=== PATIENT | male | born 1990 | race Caucasian/White ===

== ENCOUNTER 2016-07-17 23:23 | Inpatient (IN) | payer OTHER ==
[~2016-07-17] VITALS: Ht 188 cm; Wt 94.3 kg
[~2016-07-17 23:23] MED LIST: REME45TA PO
--- NOTE | 2016-07-17 23:42 | PD ---
HPI Chief Complaint: BA Time Seen by Provider: 23:35 Travel History International Travel<30 days: No Contact w/Intl Traveler<30days: No Traveled to known affect area: No History of Present Illness HPI 25-year-old male presents under Dennis act initiated by [employer] [employer]. According to his paperwork, "Vincent stated that he wanted to cause harm to himself, by using a knife. Vincent stated he had thoughts of killing himself. Vincent was in possession of a knife upon my arrival. Vincent also contacted a suicide hotline prior to my arrival." The patient reports that his mother called the suicide hotline because he asked her to. He refuses to speak anymore and the issue and would prefer to speak to the psychiatrist about it. He denies any medical problems at this time. He denies any suicide attempts. He denies any pain. He admits to drinking some alcoholic a not tonight. Denies any drug use. He has no other complaints. PFSH Past Medical History Asthma: No Anxiety: Yes Depression: Yes Cancer: No Cardiovascular Problems: No COPD: No Cerebrovascular Accident: No Diabetes: No Diminished Hearing: No Endocrine: No Genitourinary: Yes Headaches: Yes Hypertension: Yes (R/T NEPHROLOGY ISSUE OF KINKED VESSLE NOW RESOLVED AGE 10) Immune Disorder: No Kidney Stones: Yes (YEARS AGO) Musculoskeletal: No Neurologic: Yes Psychiatric: Yes Reproductive: No Respiratory: No Immunizations Current: Yes Migraines: No Renal Failure: No Seizures: No Sleep Apnea: No Past Surgical History Abdominal Surgery: Yes (APPENDECTOMY) Appendectomy: Yes Cardiac Surgery: No Ear Surgery: Yes (TYMPANOSTOMY TUBE) Endocrine Surgery: No Eye Surgery: No Genitourinary Surgery: No Gynecologic Surgery: No Oral Surgery: No Thoracic Surgery: No Tympanostomy Tube: Yes Other Surgery: Yes Social History Alcohol Use: Yes (WEEKLY, 12 DRINKS) Tobacco Use: Yes (CIGARETTES, 1 PPD) Substance Use: Yes Allergies-Medications (Allergen,Severity, Reaction): Coded Allergies: No Known Allergies (Verified , 07/17/16) Reported Meds & Prescriptions Reported Meds & Active Scripts Active No Active Prescriptions or Reported Medications Review of Systems Except as stated in HPI: all other systems reviewed are Neg Physical Exam Narrative GENERAL: Well-developed well-nourished male in no acute distress SKIN: Warm and dry. HEAD: Atraumatic. Normocephalic. EYES: Pupils equal and round. No scleral icterus. No injection or drainage. ENT: No nasal bleeding or discharge. Mucous membranes pink and moist. NECK: Trachea midline. No JVD. CARDIOVASCULAR: Regular rate and rhythm. No murmur appreciated. RESPIRATORY: No accessory muscle use. Clear to auscultation. Breath sounds equal bilaterally. GASTROINTESTINAL: Abdomen soft, non-tender, nondistended. Hepatic and splenic margins not palpable. MUSCULOSKELETAL: No obvious deformities. NEUROLOGICAL: Awake and alert. No obvious cranial nerve deficits. Motor grossly within normal limits. Normal speech. PSYCHIATRIC: Appropriate mood and affect; insight and judgment normal. Data Data Last Documented VS Vital Signs Date Time Temp Pulse Resp B/P Pulse Ox O2 Delivery O2 Flow Rate FiO2 07/17/16 23:53 14 07/17/16 23:50 98.9 110 130/77 96 Orders Complete Blood Count With Diff (07/17/16 23:32) Comprehensive Metabolic Panel (07/17/16 23:32) Drug Screen, Random Urine (07/17/16 23:32) Alcohol (Ethanol) (07/17/16 23:32) Salicylates (Aspirin) (07/17/16 23:32) Tylenol (Acetaminophen) (07/17/16 23:32) Psych Screen (07/17/16 23:32) Nicotine 14 Mg Patch.24 Hr (Habitrol 14 (07/18/16 00:00) Labs Laboratory Tests Test 07/17/16 23:55 White Blood Count 12.7 TH/MM3 Red Blood Count 4.84 MIL/MM3 Hemoglobin 14.1 GM/DL Hematocrit 41.5 % Mean Corpuscular Volume 85.6 FL Mean Corpuscular Hemoglobin 29.1 PG Mean Corpuscular Hemoglobin 34.0 % Concent Red Cell Distribution Width 13.4 % Platelet Count 222 TH/MM3 Mean Platelet Volume 9.3 FL Neutrophils (%) (Auto) 62.9 % Lymphocytes (%) (Auto) 27.6 % Monocytes (%) (Auto) 7.7 % Eosinophils (%) (Auto) 0.9 % Basophils (%) (Auto) 0.9 % Neutrophils # (Auto) 8.0 TH/MM3 Lymphocytes # (Auto) 3.5 TH/MM3 Monocytes # (Auto) 1.0 TH/MM3 Eosinophils # (Auto) 0.1 TH/MM3 Basophils # (Auto) 0.1 TH/MM3 CBC Comment DIFF FINAL Differential Comment Sodium Level 143 MEQ/L Potassium Level 3.7 MEQ/L Chloride Level 107 MEQ/L Carbon Dioxide Level 25.0 MEQ/L Anion Gap 11 MEQ/L Blood Urea Nitrogen 10 MG/DL Creatinine 1.05 MG/DL Estimat Glomerular Filtration 86 ML/MIN Rate Random Glucose 108 MG/DL Calcium Level 9.4 MG/DL Total Bilirubin 0.2 MG/DL Aspartate Amino Transf 24 U/L (AST/SGOT) Alanine Aminotransferase 42 U/L (ALT/SGPT) Alkaline Phosphatase 71 U/L Total Protein 8.2 GM/DL Albumin 4.2 GM/DL Salicylates Level 2.5 MG/DL Acetaminophen Level LESS THAN 2.0 MCG/ML Ethyl Alcohol Level 139 MG/DL [facility] Medical Decision Making Medical Screen Exam Complete: Yes Emergency Medical Condition: Yes Medical Record Reviewed: Yes Interpretation(s) CBC WBC 12.7 CMP glucose 108 Alcohol level 139 Differential Diagnosis Adjustment reaction, major depressive disorder, acute psychosis, substance induced mood disorder, depressive disorder not otherwise specified Narrative Course 25-year-old male who presents under Dennis act for suicidal ideation. Once again he declines speaking about anything psychiatric issues until he speaks to the psychiatrist. He denies any medical complaints at this time. Admits to drinking alcohol tonight. Denies any suicide attempts. Mental health screening discussed with the patient. Psychiatric screen ordered. The patient is medically cleared for psychiatric disposition. Scripts No Active Prescriptions or Reported Meds Yash Barclay Jul 17, 2016 23:42
[2016-07-17 23:50] VITALS: BP 130/77; PULSE 110; RESP 14; TEMP 98.9; O2SAT 96
[2016-07-18] MEDS ORDERED: NICOTINE 14 MG/24 HR PATCH TD ONE
[2016-07-18 00:17] LABS: BASOPHIL # 0.1 TH/MM3 (0-0.2); BASOPHIL % 0.9 % (0.0-2.0); EOSINOPHIL # 0.1 TH/MM3 (0-0.4); EOSINOPHIL % 0.9 % (0.0-4.0); HEMATOCRIT 41.5 % (39.0-51.0); HEMO FLAGS DIFF FINAL; LYMPH % 27.6 % (9.0-44.0); LYMPHOCYTE # 3.5 TH/MM3 (1.0-4.8); MEAN CELL VOLUME 85.6 FL (80.0-100.0); MEAN CORPUSCULAR HEMOGLOBIN 29.1 PG (27.0-34.0); MONO % 7.7 % (0.0-8.0); NEUT % 62.9 % (16.0-70.0); PLATELET COUNT 222 TH/MM3 (150-450); RED BLOOD COUNT 4.84 MIL/MM3 (4.50-5.90); RED CELL DISTRIBUTION WIDTH 13.4 % (11.6-17.2); WHITE BLOOD COUNT 12.7 TH/MM3 (4.0-11.0)
[2016-07-18 00:39] LABS: ALKALINE PHOSPHATASE 71 U/L (45-117); TOTAL BILIRUBIN ADULT 0.2 MG/DL (0.2-1.0)
[2016-07-18 00:46] LABS: ALT (GPT) 42 U/L (12-78); ANION GAP 11 MEQ/L (5-15); AST (GOT) 24 U/L (15-37); BLOOD UREA NITROGEN 10 MG/DL (7-18); CHLORIDE 107 MEQ/L (98-107); GLOMERULAR FILTRATION RATE 86 ML/MIN (>89); POTASSIUM 3.7 MEQ/L (3.5-5.1); SODIUM (NA) 143 MEQ/L (136-145)
[2016-07-18 00:47] LABS: ACETAMINOPHEN LESS THAN 2.0 MCG/ML (10.0-30.0)
[2016-07-18 01:05] VITALS: BP 135/83; PULSE 104; RESP 22; TEMP 97.9; O2SAT 99
[2016-07-18 05:37] VITALS: BP 140/75; PULSE 89; RESP 18; TEMP 97.5; O2SAT 98
[2016-07-18 08:13] VITALS: BP 140/75; PULSE 89; RESP 18; O2SAT 98
[2016-07-18 09:35] LABS: AMPHETAMINE, URINE NEG (NEG); BARBITURATES, URINE NEG (NEG); COCAINE, URINE NEG (NEG)
[2016-07-18 10:12] VITALS: BP 138/73; PULSE 56; RESP 18
--- NOTE | 2016-07-18 10:16 | PD ---
History of Present Illness Chief Complaint: Psychiatric Symptoms Time Seen by Provider: 09:15 Travel History International Travel<30 Days: No Contact w/Intl Traveler<30days: No Known affected area: No Legal Status Legal Status: Dennis Act Dennis Act Signed By: Mariano Alejo History of Present Illness: History of Present Illness 25-year-old male with history of adjustment disorder , substance induced mood disorder who presents under Dennis act initiated by [employer]. According to his paperwork, "Vincent stated that he wanted to cause harm to himself, by using a knife. Vincent stated he had thoughts of killing himself. Vincent was in possession of a knife upon my arrival. Vincent also contacted a suicide hotline prior to my arrival." Patient refused to answer any questions in ED and has been less than cooperative with screening process. Patient was monitored in J pod. He did not present any behavioral concerns or any suicidality. This morning he is awake, alert and oriented. Dressed in hospital attire. His hygiene is very poor and he is very disheveled. Speech is of low tone. He is only minimally cooperative with current evaluation. He is contemptuous , irritable. States " What do you want to know. I have talked to about 7 people". He begrudgingly answered some questions. States " I'm not right" . I haven't left my house for the past 4 weeks, I have not bathed in several weeks, sleeping is variable and inconsistent, low energy. He denies any hallucinatory process. In terms of suicidal ideation he does not answer either way. he admits to use of Morphine and Xanax " to self medicate" and states last used " about a few weeks ago". His BAL was 139 on admission and pending toxicology report. I have attempted to obtain collateral information from his mother but she has not returned my telephone call. As per records hew as last hosp at [facility] in 2012 under the care of Dr. Zarate. He has one previous suicide attempt by overdose of Tylenol in 2012. [facility] Past Medical History Asthma: No Anxiety: Yes Depression: Yes Cancer: No Cardiovascular Problems: No COPD: No Cerebrovascular Accident: No Diabetes: No Diminished Hearing: No Endocrine: No Genitourinary: Yes Headaches: Yes Hypertension: Yes (R/T NEPHROLOGY ISSUE OF KINKED VESSLE NOW RESOLVED AGE 10) Immune Disorder: No Kidney Stones: Yes (YEARS AGO) Musculoskeletal: No Neurologic: Yes Psychiatric: Yes Reproductive: No Respiratory: No Immunizations Current: Yes Migraines: No Renal Failure: No Seizures: No Sleep Apnea: No Past Surgical History Abdominal Surgery: Yes (APPENDECTOMY) Appendectomy: Yes Cardiac Surgery: No Ear Surgery: Yes (TYMPANOSTOMY TUBE) Endocrine Surgery: No Eye Surgery: No Genitourinary Surgery: No Gynecologic Surgery: No Oral Surgery: No Thoracic Surgery: No Tympanostomy Tube: Yes Other Surgery: Yes Psychiatric History Psychiatric History Hx Psychiatric Treatment: HX ANXIETY, DEPRESSION, SUICIDAL IDEATIONS, ADJUSTMENT REACTION D/O Deneis current psychiatric treatment History of Inpatient Treatment: Yes (2012 under the care of Dr. Zarate) Guns or firearms in home: No Social History Limited due to his lack of cooperation. Lives with his parents. Hx Alcohol Use: Yes (WEEKLY, 12 DRINKS) Hx Tobacco Use: Yes (CIGARETTES, 1 PPD) Hx Substance Use: Yes Substance Use Type: Alcohol, Marijuana, Nicotine/Cigarettes, Benzos (Valium, Xanax), Synth Opiates-Pain Pills Hx of Substance Use Treatment: Yes Family Psychiatric History Unknown Allergies-Medications (Allergen,Severity, Reaction): Coded Allergies: No Known Allergies (Verified , 07/17/16) Reported Meds & Prescriptions Reported Meds & Active Scripts Active No Active Prescriptions or Reported Medications Review of Systems ROS Limitations: Uncooperative Exam Alert: Yes [place]: Person (ox4) Mood: Angry, Depressed, Oppositional Affect: Other (angry) Eye Contact: Indirect Memory Intact: Comment (not tested) Hallucinations: Other (deneis) Delusions: No Suicidal: Ideation (Non commital ) Homicidal: Ideation (Answers " doesn't everybody feel like hurting someone") Insight/Judgement Poor. Poor MDM Medical Decision Making Medical Record Reviewed: Yes Assessment/Plan 25 year old male under a BA for suicidal ideation . Patient reports he has been using Morphine and Xanax in order to " self medicate". Repost depression as well. He is not cooperative with admission and is irritable with staff. Strong [place] 2 traits evident at this time mostly cluster B. At this time admission is recommended to further evaluate, maintain safety, stabilize mood and initiate treatment. as he presents as a risk to self. Orders Complete Blood Count With Diff (07/17/16 23:32) Comprehensive Metabolic Panel (07/17/16 23:32) Drug Screen, Random Urine (07/17/16 23:32) Alcohol (Ethanol) (07/17/16 23:32) Salicylates (Aspirin) (07/17/16 23:32) Tylenol (Acetaminophen) (07/17/16 23:32) Psych Screen (07/17/16 23:32) Nicotine 14 Mg Patch.24 Hr (Habitrol 14 (07/18/16 00:00) Diet Regular Basic (07/18/16 Breakfast) Results Vital Signs Date Time Temp Pulse Resp B/P Pulse Ox O2 Delivery O2 Flow Rate FiO2 07/18/16 08:13 89 18 140/75 98 Room Air 07/18/16 05:37 97.5 89 18 140/75 98 Room Air 07/18/16 01:05 97.9 104 22 135/83 99 Room Air 07/17/16 23:53 14 07/17/16 23:50 98.9 110 14 130/77 96 Laboratory Tests Test 07/17/16 07/18/16 23:55 08:15 White Blood Count 12.7 Red Blood Count 4.84 Hemoglobin 14.1 Hematocrit 41.5 Mean Corpuscular Volume 85.6 Mean Corpuscular Hemoglobin 29.1 Mean Corpuscular Hemoglobin 34.0 Concent Red Cell Distribution Width 13.4 Platelet Count 222 Mean Platelet Volume 9.3 Neutrophils (%) (Auto) 62.9 Lymphocytes (%) (Auto) 27.6 Monocytes (%) (Auto) 7.7 Eosinophils (%) (Auto) 0.9 Basophils (%) (Auto) 0.9 Neutrophils # (Auto) 8.0 Lymphocytes # (Auto) 3.5 Monocytes # (Auto) 1.0 Eosinophils # (Auto) 0.1 Basophils # (Auto) 0.1 CBC Comment DIFF FINAL Differential Comment Sodium Level 143 Potassium Level 3.7 Chloride Level 107 Carbon Dioxide Level 25.0 Anion Gap 11 Blood Urea Nitrogen 10 Creatinine 1.05 Estimat Glomerular Filtration 86 Rate Random Glucose 108 Calcium Level 9.4 Total Bilirubin 0.2 Aspartate Amino Transf 24 (AST/SGOT) Alanine Aminotransferase 42 (ALT/SGPT) Alkaline Phosphatase 71 Total Protein 8.2 Albumin 4.2 Salicylates Level 2.5 Acetaminophen Level LESS THAN 2.0 Ethyl Alcohol Level 139 Urine Opiates Screen NEG Urine Barbiturates Screen NEG Urine Amphetamines Screen NEG Urine Benzodiazepines Screen NEG Urine Cocaine Screen NEG Urine Cannabinoids Screen NEG Diagnosis Primary Impression: Substance induced mood disorder Admitting Information Admitting Physician Requests: Admit (Dr. Toscano) Prescriptions No Active Prescriptions or Reported Meds Alta Keller Jul 18, 2016 10:16
[2016-07-18] MEDS ORDERED: MAGNESIUM HYDROXIDE SUSP 30 ML CUP PO PRN (10:30)
[2016-07-18] MEDS ORDERED: ALUMINUM/MAGNESIUM/SIMETH 30 ML CUP PO PRN (10:30)
[2016-07-18 12:31] VITALS: BP 157/103; PULSE 58; O2SAT 97
[2016-07-18 21:23] VITALS: BP 115/62; PULSE 53; RESP 17; TEMP 98
[2016-07-19 05:52] VITALS: BP 131/67; PULSE 56; RESP 16; TEMP 98.2; O2SAT 98
[2016-07-19 08:41] LABS: ANION GAP 8 MEQ/L (5-15); BICARBONATE 25.4 MEQ/L (21.0-32.0); BLOOD UREA NITROGEN 9 MG/DL (7-18); CHLORIDE 106 MEQ/L (98-107); GLOMERULAR FILTRATION RATE 108 ML/MIN (>89); HDL CHOLESTEROL 39.5 MG/DL (40.0-60.0); LDL CHOLESTEROL 87 MG/DL (0-99); POTASSIUM 3.9 MEQ/L (3.5-5.1); SODIUM (NA) 139 MEQ/L (136-145)
[2016-07-19 12:24] LABS: HEMOGLOBIN A1b 0.8 %; HEMOGLOBIN Ao 86.6 %; HEMOGLOBIN F 0.9 %; HEMOGLOBIN LA1C 1.8 %; HEMOGLOBIN P3 3.3 %
[2016-07-19] MEDS: NICOTINE 21 MG/24 HR PATCH T-DERMAL SCH (13:00)
[2016-07-19] MEDS ORDERED: ACETAMINOPHEN 325 MG TAB PO PRN (13:00)
[2016-07-19] MEDS ORDERED: ALUMINUM/MAGNESIUM/SIMETH 30 ML CUP PO PRN (13:00)
[2016-07-19] MEDS ORDERED: MAGNESIUM HYDROXIDE SUSP 30 ML CUP PO PRN (13:00)
[2016-07-19] MEDS: REMOVE OLD NICODERM (NICOTINE) PATCH TD SCH (13:00)
--- NOTE | 2016-07-19 13:24 | HHI.HP ---
Provisional Diagnosis Admission Date Jul 18, 2016 at 10:20 [place] I. Major depressive disorder recurrent moderate f 33.1, EtOH intoxication, history of multiple drug abuse Certification of Person's Competence To Provide Express and Informed Consent I have personally examined Vincent Cardoso , a person being served at [facility] on, Jul 19, 2016 13:03. Express and informed consent means consent voluntarily given in writing, by a competent person, after sufficient explanation and disclosure of the subject matter involved to enable the person to make a knowing and willful decision without any element of force, fraud, deceit, duress, or other form of constraint or coercion. This person is 18 years of age or older, is not now known to be incompetent to consent to treatment with a guardian advocate, and does not have a health care surrogate or proxy currently making medical treatment decisions. I have found this person to be one of the following: [] Competent to provide express and informed consent, as defined above, for voluntary admission to this facility and is competent to provide express and informed consent for treatment. He/she has the consistent capacity to make well reasoned, willful, and knowing decisions concerning his or her medical or mental health treatment. The person fully and consistently understands the purpose of the admission for examination/placement and is fully capable of personally exercising all rights assured [place] [] Incompetent to provide express and informed consent to voluntary admission, and this is incompetent to provide express and informed consent to treatment. The person must be transferred to involuntary status and a petition for a guardian advocate filed with the Circuit Court. [x] Refusing to provide express and informed consent to voluntary admission but is competent to provide express and informed consent for treatment. The person must be discharged or transferred to involuntary status. Form shall be completed within 24 hours of a person's arrival at the receiving facility and filed in the clinical record of each person: 1. Admitted on a voluntary basis 2. Permitted to provide express and informed consent to his/her own treatment 3. Allowed to transfer from involuntary to voluntary status 4. Prior to permitting a person to consent to his or her own treatment after having been previously found incompetent to consent to treatment. History of Present Illness Capacity: Has Capacity HPI Patient is a 25-year-old white male comes here under Dennis act by the [place] [employer] dated 07/17/16 at 2255 hrs. stating Jaxon stated that he wanted to cause harm to himself by using a knife. Jaxon stated he had thoughts of killing himself. Jaxon was in possession of a knife upon my arrival. Jaxon also contacted the suicide hotline prior to my arrival. Patient seen screened in the ED blood alcohol level of 139 urine toxicology negative. Upon review of EMR patient has had 3 visits for mental health issues in 2013 there been various urine toxicology is drawn showing elevated blood alcohol levels and also other substances including marijuana, opiates, and benzodiazepines. At the present time patient sitting quietly in his room on 2600 nurse Tyson present throughout session. Patient initially attempted to control the meeting by demanding he speak with me alone, I informed him that this was a team approach and that the nurses remain present to witness and he were of his statements. Patient showed some marked manipulation irritability narcissistic traits during the session he states that he drinks to treat his depression stated that he had been depressed for many years. He lives at home with his mother father and 14-year-old sister, states he gets along with his mother, does not get along with his father or sister. He is vague somewhat grandiose statements about a multiple year history of multiple drug abuse including K2 mushrooms and hallucinogenic's. Though he denies intravenous drug abuse. He states he has both initial and mid insomnia with a.m. anergy, there is decreased energy, though he denies any crying episodes, he states appetite is up and down, though his anhedonic stating he has no sex drive (he states his sexual preferences female), he finds his attention and concentration is markedly variable, the fundus self isolating night going into any crowded all mall like environment, he does acknowledge self -medicating with alcohol and drugs, he denies any voices or visions with this, he does acknowledge suicidal ideation though he states he would not kill himself causing what he would do to his mother and sister. He denies any physical or sexual abuse. Voices he has at times had a pressure show with his father. He states he has been arrested in the past for aggressive behavior. He does deny any significant mood swings though there to he is somewhat tangential minimizing and confusing with his statements about manic episodes He states he has some college courses and psychology. 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 We did discuss medications. He states he has been on medications in the past this hospitalizations in 2013 being was never compliant with medications and any type of long-term. We will start the patient on Remeron 15 mg at bedtime and Abilify 10 mg in the morning.. At this time patient does meet criteria for acute involuntary psychiatric hospitalization on the Dennis act I'll do first opinion requests second opinion. I feel he has capacity to assist with us was medications. Hopeless be fairly short stay and we can make recommendations related to substance abuse and mental health issues. Though he did make somewhat confusing story about making an appointment with a family doctor to discuss possible counseling. He does deny any significant medical surgical problems Review of Systems Constitutional: DENIES: Diaphoretic episodes, Fatigue, Fever, Weight gain, Weight loss, Chills, Dizziness, Change in appetite, Night Sweats Endocrine: DENIES: Heat/cold intolerance, Polydipsia, Polyuria, Polyphagia Eyes: DENIES: Blurred vision, Diplopia, Eye inflammation, Eye pain, Vision loss , Photosensitivity, Double Vision Ears, nose, mouth, throat: DENIES: Tinnitus, Hearing loss, Vertigo, Nasal discharge, Oral lesions, Throat pain, Hoarseness, Ear Pain, Running Nose, Epistaxis, Sinus Pain, Toothache, Odynophagia Respiratory: DENIES: Apneas, Cough, Snoring, Wheezing, Hemoptysis, Sputum production, Shortness of breath Cardiovascular: DENIES: Chest pain, Palpitations, Syncope, Dyspnea on Exertion , PND, Lower Extremity Edema, Orthopnea, Claudication Gastrointestinal: DENIES: Abdominal pain, Black stools, Bloody stools, Constipation, Diarrhea, Nausea, Vomiting, Difficulty Swallowing, Anorexia Genitourinary: DENIES: Sexual dysfunction, Urinary frequency, Urinary incontinence, Urgency, Hematuria, Dysuria, Nocturia, Penile Discharge, Testicular Pain, Testicular Swelling Musculoskeletal: DENIES: Joint pain, Muscle aches, Stiffness, Joint Swelling, Back pain, Neck pain Integumentary: DENIES: Abnormal pigmentation, Nail changes, Pruritus, Rash Hematologic/lymphatic: DENIES: Bruising, Lymphadenopathy Immunologic/allergic: DENIES: Eczema, Urticaria Neurologic: DENIES: Abnormal gait, Headache, Localized weakness, Paresthesias, Seizures, Speech Problems, Tremor, Poor Balance Psychiatric: COMPLAINS OF: Depression, Suicidal Ideation Past Psych History Psychological trauma history Patient denies physical or sexual abuse, acknowledges a long history of multiple drug abuse, has been hospitalized [place] [address] [place] Violence risk - others (6 mos) Patient states he has pressure showed his father in the past Violence risk - self (6 mos) Patient states vague suicidal ideation but is been recurrent Substance Abuse History Drugs/Alcohol past 12 months Patient active drinking Past Family Social History Coded Allergies: No Known Allergies (Verified , 07/17/16) Past Medical History Patient denies any significant medical issues No Active Prescriptions or Reported Meds Current Medications Medications (Trade) Dose Ordered Sig/Molly Route Start Time Stop Time Status Last Admin (Tylenol) 650 mg Q4H PRN PO 07/18/16 10:30 (Milk Of Magnesia Liq) 30 ml DAILY PRN PO 07/18/16 10:30 (Mag-Al Plus Susp Liq) 30 ml Q6H PRN PO 07/18/16 10:30 (Mag-Al Plus Susp Liq) 30 ml Q6H PRN PO 07/19/16 13:00 UNV Family History Patient denies mental illness in the family play states he has a difficult which ship with his father Social History Patient is single no children long history alcohol abuse and past history multiple drug abuse Patient's Strengths (min. 2) Patient verbal albeit quite cynical manipulative and entitled, intelligence and able axis health care Physical Exam Patient seen screened in ED exam reviewed and agreed with vital signs blood pressure 131/67 pulse 56 respirations 16 Vital Signs Vital Signs Date Time Temp Pulse Resp B/P Pulse Ox O2 Delivery O2 Flow Rate FiO2 07/19/16 05:52 98.2 56 16 131/67 98 07/18/16 10:12 Room Air Mental Status Examination Alert oriented white male appears stated age sitting quietly in his room with nurses present as mentioned above. Patient somewhat manipulative entitled narcissistic and his responses some vague grandiosity noted with intense eye contact Appearance Clean the Speech: Unremarkable, Fast, Circumstantial (mildly), Tangential (mildly) Orientation: x3 Memory: Unremarkable Thought Process: Logical, Circumstantial (mildly) Thought Content: Unremarkable Language [place]ian Fund of Knowledge Moderate Hallucination Type: None Attention and Concentration: Other (fair) Suicidal Ideation: Yes (vague ideation) Previous Suicide Attempts: No Homicidal Ideation: No Previous Homicide Attempts: No Insight: Fair Judgement: Poor Affect: Other (decreased range and intensity) Mood: Sad (the times patient showing incongruent affect) Motor Activity: Normal gait Assessment & Plan Problem List: (1) Major depressive disorder, recurrent episode, moderate ICD Code: F33.1 Assessment & Plan Estimated LOS: 7 days at this time patient meets criteria for involuntary psychiatric hospitalization under Dennis act I'll do first opinion requests a second opinion, I feel he has capacity to make decisions considering his medication. We'll start him on Remeron at bedtime and Abilify in the morning Discharge Planning To be determined Request HC Surrog/Guard Advoc?: No Raudel Toscano MD Jul 19, 2016 13:24
[2016-07-19] MEDS: ARIPiprazole 10 MG TAB PO SCH (13:36)
[2016-07-19 18:13] VITALS: BP 131/81; PULSE 76; RESP 18; TEMP 98.7; O2SAT 95
[2016-07-19 21:00] VITALS: BP 131/81; PULSE 76; RESP 18; TEMP 98.7; O2SAT 95
[2016-07-19] MEDS ORDERED: diphenhydrAMINE HCL 50 MG CAP PO PRN (21:00)
[2016-07-19] MEDS: MIRTAZAPINE 15 MG TAB PO SCH (21:15)
[2016-07-19 23:16] VITALS: BP 131/81; PULSE 76; RESP 48; TEMP 98.7; O2SAT 95
[2016-07-20 06:35] VITALS: BP 127/73; PULSE 63; RESP 16; TEMP 97.5; O2SAT 95
[2016-07-20] MEDS: ARIPiprazole 10 MG TAB PO SCH (08:31)
[2016-07-20] MEDS: REMOVE OLD NICODERM (NICOTINE) PATCH TD SCH ×2 (09:00→11:15)
[2016-07-20] MEDS: NICOTINE 21 MG/24 HR PATCH T-DERMAL SCH ×2 (09:00→11:14)
--- NOTE | 2016-07-20 16:21 | HHI.PYPN ---
Subjective Remarks Patient seen, chart reviewed, case discussed with staff Lengthy discussion with patient revealed that he could identify manic episodes, discussion revealed continued suicidality, marked grandiosity, recent lack of sleep, previous weight gain on Seroquel 150 q HS, no previous use of [place], FHx of Bipolar disorder in his mother. (this Hx is highly divergent from that obtained by Dr Toscano at admission, raising questions about its veracity, however I will proceed assuming it is correct anyway) Patient reports he does not like Abilify and wants to stop it Patient is highly irritable and feels people are lying to him and misrepresenting things to him. He is up for meals and meds. Review of Systems Psychiatric: COMPLAINS OF: Anxiety, Mood changes, Depression, Agitation, Suicidal Ideation Other otherwise 10 point ROS is negative Objective Alert: Yes [place]: Person (ox4) Mood: Angry, Depressed, Oppositional Affect: Other (angry) Memory Intact: Comment (not tested) Hallucinations: Other (deneis) Delusions: Yes Delusion Type: Grandiose, Other Suicidal: Ideation (Non commital ) Homicidal: Ideation (Answers " doesn't everybody feel like hurting someone") Insight/Judgement poor Labs Allergies Coded Allergies Type Severity Reaction Last Updated Verified No Known Allergies 07/17/16 Yes Laboratory Tests Test 07/17/16 07/18/16 07/19/16 23:55 08:15 07:07 White Blood Count 12.7 TH/MM3 Red Blood Count 4.84 MIL/MM3 Hemoglobin 14.1 GM/DL Hematocrit 41.5 % Mean Corpuscular Volume 85.6 FL Mean Corpuscular Hemoglobin 29.1 PG Mean Corpuscular Hemoglobin 34.0 % Concent Red Cell Distribution Width 13.4 % Platelet Count 222 TH/MM3 Mean Platelet Volume 9.3 FL Neutrophils (%) (Auto) 62.9 % Lymphocytes (%) (Auto) 27.6 % Monocytes (%) (Auto) 7.7 % Eosinophils (%) (Auto) 0.9 % Basophils (%) (Auto) 0.9 % Neutrophils # (Auto) 8.0 TH/MM3 Lymphocytes # (Auto) 3.5 TH/MM3 Monocytes # (Auto) 1.0 TH/MM3 Eosinophils # (Auto) 0.1 TH/MM3 Basophils # (Auto) 0.1 TH/MM3 CBC Comment DIFF FINAL Differential Comment Sodium Level 143 MEQ/L 139 MEQ/L Potassium Level 3.7 MEQ/L 3.9 MEQ/L Chloride Level 107 MEQ/L 106 MEQ/L Carbon Dioxide Level 25.0 MEQ/L 25.4 MEQ/L Anion Gap 11 MEQ/L 8 MEQ/L Blood Urea Nitrogen 10 MG/DL 9 MG/DL Creatinine 1.05 MG/DL 0.86 MG/DL Estimat Glomerular Filtration 86 ML/MIN 108 ML/MIN Rate Random Glucose 108 MG/DL 97 MG/DL Calcium Level 9.4 MG/DL 8.7 MG/DL Total Bilirubin 0.2 MG/DL Aspartate Amino Transf 24 U/L (AST/SGOT) Alanine Aminotransferase 42 U/L (ALT/SGPT) Alkaline Phosphatase 71 U/L Total Protein 8.2 GM/DL Albumin 4.2 GM/DL Salicylates Level 2.5 MG/DL Acetaminophen Level LESS THAN 2.0 MCG/ML Ethyl Alcohol Level 139 MG/DL Urine Opiates Screen NEG Urine Barbiturates Screen NEG Urine Amphetamines Screen NEG Urine Benzodiazepines Screen NEG Urine Cocaine Screen NEG Urine Cannabinoids Screen NEG Hemoglobin A1c 5.1 % Triglycerides Level 140 MG/DL Cholesterol Level 154 MG/DL LDL Cholesterol 87 MG/DL HDL Cholesterol 39.5 MG/DL Cholesterol/HDL Ratio 3.89 RATIO Procedure Category Date Status Time Complete Blood Count LAB 07/17/16 Complete With Diff 23:32 Comprehensive LAB 07/17/16 Complete Metabolic Panel 23:32 Drug Screen, Random LAB 07/17/16 Complete Urine 23:32 Alcohol (Ethanol) LAB 07/17/16 Complete 23:32 Salicylates (Aspirin) LAB 07/17/16 Complete 23:32 Tylenol LAB 07/17/16 Complete (Acetaminophen) 23:32 Psych Screen [place] 07/17/16 Transmitted 23:32 Nicotine 14 Mg MED 07/18/16 Complete Patch.24 Hr (Habitrol 00:00 Diet Regular Basic DIET 07/18/16 Complete Breakfast Admit Order (Ed Use ADMITTING 07/18/16 Transmitted Only) Admit To Inpatient ADMITTING 07/18/16 Transmitted Psych Code Status CODE 07/18/16 Transmitted 10:17 Vital Signs (Adult) MATTHEW 07/18/16 Complete 10:17 Activity Oob Ad Catina MATTHEW 07/18/16 In Process 10:17 Level Of Observation MATTHEW 07/18/16 In Process (Psych) 10:17 Acetaminophen MED 07/18/16 In Process (Tylenol) 10:30 Magnesium Hydroxide MED 07/18/16 In Process Liq (Milk Of Magnesi 10:30 Al-Mag Hy-Si 40-40-4 MED 07/18/16 In Process Mg/Ml Liq (Mag-Al P 10:30 Basic Metabolic Panel LAB 07/19/16 Complete (Bmp) 06:00 Lipid Profile LAB 07/19/16 Complete 06:00 Hemoglobin (Hgb) A1c LAB 07/19/16 Complete 06:00 Diet Regular Basic DIET 07/18/16 Complete Lunch Admit To Inpatient ADMITTING 07/19/16 Transmitted Psych Vital Signs (Adult) MATTHEW 07/19/16 Complete 12:59 Activity Oob Ad Catina MATTHEW 07/19/16 In Process 12:59 Level Of Observation MATTHEW 07/19/16 In Process (Psych) 12:59 Diet Regular Basic DIET 07/19/16 Transmitted Lunch Diphenhydramine MED 07/19/16 In Process (Benadryl) 21:00 Nicotine 21 Mg MED 07/19/16 In Process Patch.24 Hr (Habitrol 13:00 Consult Psychiatry CONS 07/19/16 Transmitted Mirtazapine (Remeron) MED 07/19/16 In Process 21:00 Aripiprazole (Abilify) MED 07/19/16 Complete 13:15 Remove Old Patch MED 07/19/16 In Process 13:00 (Hub Use Only)Inp Phy CONS 07/19/16 Transmitted Cons/Ref Quetiapine (Seroquel) MED 07/20/16 In Process 21:00 Lurasidone (Latuda) MED 07/21/16 In Process 09:00 Vital Signs Date Time Temp Pulse Resp B/P Pulse Ox O2 Delivery O2 Flow Rate FiO2 07/20/16 06:35 97.5 63 16 127/73 95 07/19/16 23:16 98.7 76 48 131/81 95 07/19/16 21:00 98.7 76 18 131/81 95 07/19/16 18:13 98.7 76 18 131/81 95 07/19/16 05:52 98.2 56 16 131/67 98 07/18/16 21:23 98.0 53 17 115/62 07/18/16 12:31 58 157/103 97 07/18/16 10:12 56 18 138/73 Room Air 07/18/16 08:13 89 18 140/75 98 Room Air 07/18/16 05:37 97.5 89 18 140/75 98 Room Air 07/18/16 01:05 97.9 104 22 135/83 99 Room Air 07/17/16 23:53 14 07/17/16 23:50 98.9 110 14 130/77 96 Vitals/IOs Vital Signs Date Time Temp Pulse Resp B/P Pulse Ox O2 Delivery O2 Flow Rate FiO2 07/20/16 06:35 97.5 63 16 127/73 95 07/18/16 10:12 Room Air Assessment & Plan Problem List: (1) Bipolar I disorder, most recent episode depressed Assessment & Plan: Although the contradiction between the history obtained by Dr Toscano and myself is somewhat problematic I am going to change this patients medications. This patient may have an axis II disorder, and he may be splitting members of the treatment team. He is clearly behaving problematically with respect to expecting literal responses from his treaters and being very short tempered if his expectations are not met literally. However, I did think he made a case for having previous manic episodes. so I will make an attempt to treat him as effectively as I can for Bipolar Disorder. Presumably the patient either will begin responding or we will see the futility of this approach. ICD Code: F31.30 Assessment & Plan Estimated LOS: days Justification for Cont. Inpt. danger to self, medication modification, risk of decompensation Request HC Surrog/Guard Advoc?: No Milla Barahona MD Jul 20, 2016 16:21
[2016-07-20 18:27] VITALS: BP 135/78; PULSE 67; RESP 17; TEMP 98.5; O2SAT 97
[2016-07-20] MEDS ORDERED: QUEtiapine FUMARATE 100 MG TAB PO SCH (21:00)
[2016-07-20] MEDS: MIRTAZAPINE 15 MG TAB PO SCH (21:51)
[2016-07-21 05:46] VITALS: BP 105/68; PULSE 59; RESP 16; TEMP 97.9
[2016-07-21] MEDS: LURASIDONE 40 MG TAB PO SCH (09:00)
--- NOTE | 2016-07-21 12:17 | HHI.PYPN ---
Subjective Remarks Patient seen, chart reviewed, case discussed with staff Vincent is somewhat improved today. His sleep is somewhat improved and he reports some improvement in mood and decreased suicidal ideation. He tolerated his newer medications, Seroquel and Latuda and preferred them to Abilify. Vincent has been up today, for meals and socializing on the Unit. He is still irritable, but slightly less so, and slightly more reasonable. He is willing to sign in on a voluntary basis to avoid [facility]. He denied side effects to his medications. Patient is still not achieving a full nights sleep. Review of Systems Psychiatric: COMPLAINS OF: Anxiety, Mood changes, Depression Other otherwise 10 point ROS is negative Objective Alert: Yes [place]: Person (ox4), Place, Situation Mood: Agitated, Depressed, Oppositional Affect: Labile Memory Intact: Comment (not tested) Hallucinations: Other (deneis) Delusions: Yes Delusion Type: Grandiose Suicidal: Ideation (denies) Homicidal: Ideation (denies) Insight/Judgement poor Vitals/IOs Vital Signs Date Time Temp Pulse Resp B/P Pulse Ox O2 Delivery O2 Flow Rate FiO2 07/21/16 05:46 97.9 59 16 105/68 07/20/16 18:27 97 07/18/16 10:12 Room Air Assessment & Plan Problem List: (1) Bipolar I disorder, most recent episode depressed Assessment & Plan: better response today on Seroquel and Latuda combination. Will increase HS Seroquel ICD Code: F31.30 Assessment & Plan Estimated LOS: days Justification for Cont. Inpt. risk for decompensation, active monitering for active medication adjustment Request HC Surrog/Guard Advoc?: No Milla Barahona MD Jul 21, 2016 12:17
[2016-07-21] MEDS: ACETAMINOPHEN 325 MG TAB PO PRN (13:47)
[2016-07-21] MEDS ORDERED: QUEtiapine FUMARATE 200 MG TAB PO SCH (21:00)
[2016-07-21] MEDS: MIRTAZAPINE 15 MG TAB PO SCH (21:29)
[2016-07-22 06:01] VITALS: BP 100/59; PULSE 75; RESP 16; TEMP 97.9
[2016-07-22] MEDS: REMOVE OLD NICODERM (NICOTINE) PATCH TD SCH (09:00)
[2016-07-22] MEDS: LURASIDONE 40 MG TAB PO SCH (09:04)
[2016-07-22] MEDS: NICOTINE 21 MG/24 HR PATCH T-DERMAL SCH (09:04)
--- NOTE | 2016-07-22 14:10 | HHI.PYPN ---
Subjective Remarks Patient was seen and discussed with the staffing executive. Patient reported that he has been doing little bit better but still has been having difficulty falling sleep because other patients are making noise. He feels easily irritated table frustrated and upset but he could be reassured. He denied any suicidal ideation intentions or plan. No side effects were complained from the medication. He is compliant in taking the medication. We will adjust the medication to help him sleep. Review of Systems Psychiatric: COMPLAINS OF: Mood changes, Depression Other Review of systems same as that off 07/19/16 Objective Alert: Yes [place]: Person (ox4), Place, Situation Mood: Agitated, Depressed, Other (atriocaval gets easily upset) Affect: Labile Memory Intact: Comment (not tested but seems intact) Hallucinations: Other (deneis) Delusions: Yes Delusion Type: Other (guarded) Suicidal: Ideation (denies) Homicidal: Ideation (denies) Insight/Judgement Fair Vitals/IOs Vital Signs Date Time Temp Pulse Resp B/P Pulse Ox O2 Delivery O2 Flow Rate FiO2 07/22/16 06:01 97.9 75 16 100/59 07/20/16 18:27 97 07/18/16 10:12 Room Air Assessment & Plan Problem List: (1) Bipolar I disorder, most recent episode depressed ICD Code: F31.30 Assessment & Plan Estimated LOS: days Justification for Cont. Inpt. Risk of decompensation and monitoring of the medication Request HC Surrog/Guard Advoc?: No Chad Puente MD Jul 22, 2016 14:10
[2016-07-22 18:04] VITALS: BP 120/45; PULSE 91; RESP 16; TEMP 97.9
[2016-07-22] MEDS: ACETAMINOPHEN 325 MG TAB PO PRN (19:50)
[2016-07-22] MEDS: MIRTAZAPINE 15 MG TAB PO SCH (21:20)
[2016-07-22] MEDS: QUEtiapine FUMARATE 300 MG TAB PO SCH (21:20)
[2016-07-23 05:13] VITALS: BP 104/63; PULSE 70; RESP 16; TEMP 98; O2SAT 98
[2016-07-23] MEDS: REMOVE OLD NICODERM (NICOTINE) PATCH TD SCH (09:00)
[2016-07-23] MEDS: LURASIDONE 80 MG TAB PO SCH (09:35)
[2016-07-23] MEDS: NICOTINE 21 MG/24 HR PATCH T-DERMAL SCH (09:36)
--- NOTE | 2016-07-23 12:18 | HHI.PYPN ---
Subjective Remarks Patient seen in day room with nurse Ansley, patient overall calm cooperative compliant medications, but he still is somewhat cynical entitled attitude. He denies suicidality at this time. For now continue treatment no change Review of Systems Other No somatic complaints today Objective Alert: Yes [place]: Person (ox4), Place, Situation Mood: Agitated, Depressed, Other (atriocaval gets easily upset) Affect: Labile Memory Intact: Comment (not tested but seems intact) Hallucinations: Other (deneis) Delusions: Yes Delusion Type: Other (guarded) Suicidal: Ideation (denies) Homicidal: Ideation (denies) Insight/Judgement Poor Vitals/IOs Vital Signs Date Time Temp Pulse Resp B/P Pulse Ox O2 Delivery O2 Flow Rate FiO2 07/23/16 05:13 98.0 70 16 104/63 98 Assessment & Plan Problem List: (1) Bipolar I disorder, most recent episode depressed ICD Code: F31.30 Assessment & Plan Estimated LOS: days patient continues somewhat the presence of vague suicidality, compliant medications. For now continue treatment Justification for Cont. Inpt. At this time the patient decompensated placed in a lower level of care Discharge Planning To be determined Request HC Surrog/Guard Advoc?: No Raudel Toscano MD Jul 23, 2016 12:18
[2016-07-23] MEDS: ACETAMINOPHEN 325 MG TAB PO PRN (17:29)
[2016-07-23 19:22] VITALS: BP 137/79; PULSE 101; RESP 18; TEMP 97.2; O2SAT 97
[2016-07-23] MEDS: QUEtiapine FUMARATE 300 MG TAB PO SCH (22:03)
[2016-07-23] MEDS: MIRTAZAPINE 15 MG TAB PO SCH (22:03)
[2016-07-24 06:04] VITALS: BP 109/63; PULSE 94; RESP 18; TEMP 98.2; O2SAT 97
[2016-07-24] MEDS: REMOVE OLD NICODERM (NICOTINE) PATCH TD SCH (09:00)
[2016-07-24] MEDS: NICOTINE 21 MG/24 HR PATCH T-DERMAL SCH (09:00)
[2016-07-24] MEDS: LURASIDONE 80 MG TAB PO SCH (09:29)
--- NOTE | 2016-07-24 13:43 | HHI.PYPN ---
Subjective Remarks Patient seen and examined with nursing staff. Chart reviewed. Case discussed with nursing staff who reports patient has been calm and cooperative on the unit. On my examination today, the patient reports that he malingered his initial reports of suicidal ideation in order to get help for his depression. "I know what to say to get help for my depression." He denies suicidal ideation , intent or plan now. He does admit that his mood remains little depressed but is certainly improved versus admission. He is hopeful for discharge tomorrow. We review his psychiatric history. He tends to minimize the role of substances in his presentation here. He denies side effects from medications. With patient's permission, I have placed a call to his mother Martin at . Left voicemail requesting a call back. Review of Systems Other No reported physical complaints Objective Alert: Yes [place]: Person (O x 3) Mood: Calm, Depressed (mild) Affect: Other (fairly full and reactive) Memory Intact: Comment (Intact on clinical exam.) Hallucinations: Other (No AVH) Delusions: Yes Delusion Type: Other (No evident delusions) Suicidal: Ideation (Denies SI, intent or plan) Homicidal: Ideation (No HI) Insight/Judgement Fair Remarks Thought process linear. Speech within normal limits for rate, tone and volume. No abnormal motor movements noted. Labs Labs reviewed. No new labs. Vitals/IOs Vital Signs Date Time Temp Pulse Resp B/P Pulse Ox O2 Delivery O2 Flow Rate FiO2 07/24/16 06:04 98.2 94 18 109/63 97 Assessment & Plan Problem List: (1) Bipolar I disorder, most recent episode depressed ICD Code: F31.30 Assessment & Plan Continue current psychotropics as ordered. I'll recheck a white blood cell count to make sure it has normalized. Continue other medications and care as ordered. Justification for Cont. Inpt. Discharge planning. Case d/w counselor. Discharge Planning Monitor overnight Request HC Surrog/Guard Advoc?: No Uziel Saenz MD Jul 24, 2016 13:43
[2016-07-24] MEDS: ACETAMINOPHEN 325 MG TAB PO PRN ×2 (17:07→22:05)
[2016-07-24 18:00] VITALS: BP 155/90; PULSE 81; RESP 18; TEMP 98.5; O2SAT 98
[2016-07-24] MEDS: QUEtiapine FUMARATE 300 MG TAB PO SCH (22:04)
[2016-07-24] MEDS: MIRTAZAPINE 15 MG TAB PO SCH (22:05)
[2016-07-25 06:02] VITALS: BP 112/55; PULSE 75; RESP 16; TEMP 97.5
[2016-07-25] MEDS: LURASIDONE 80 MG TAB PO SCH (08:53)
[2016-07-25] MEDS: REMOVE OLD NICODERM (NICOTINE) PATCH TD SCH (08:59)
[2016-07-25] MEDS: NICOTINE 21 MG/24 HR PATCH T-DERMAL SCH (08:59)
--- NOTE | 2016-07-25 13:59 | HHI.PYPN ---
Subjective Remarks Patient seen and examined with nursing staff. Chart reviewed. Case discussed with nursing staff who reports patient has been no behavioral problem. Nursing staff reports patient wants to titrate his Remeron to target sleep. On my examination today, patient is somewhat discharge focused. Denies SI or HI. Denies side effects from medications. Review of Systems Other No physical complaints were reported today Objective Alert: Yes [place]: Person, Place (at least) Mood: Calm Affect: Blunted Memory Intact: Comment (intact) Hallucinations: Other (No AVH) Delusions: Yes Delusion Type: Other (no delusions) Suicidal: Ideation (denies SI) Homicidal: Ideation (denies HI) Insight/Judgement Fair Remarks Thought process linear Labs Test 07/24/16 16:08 White Blood Count 10.0 TH/MM3 Labs reviewed. White blood cell count has normalized. Vitals/IOs Vital Signs Date Time Temp Pulse Resp B/P Pulse Ox O2 Delivery O2 Flow Rate FiO2 07/25/16 06:02 97.5 75 16 112/55 07/24/16 18:00 98 Assessment & Plan Problem List: (1) Bipolar I disorder, most recent episode depressed ICD Code: F31.30 Assessment & Plan It appears patient has been sleeping 6 or 7 hours a night. I'm not sure that titrating patient's Remeron would offer much additional benefit in this regard. I'll continue current psychotropics as ordered. Continue other medications and care as ordered. Justification for Cont. Inpt. Discharge planning Discharge Planning Per Dr. Barahona Request HC Surrog/Guard Advoc?: No Uziel Saenz MD Jul 25, 2016 13:59
[2016-07-25 18:00] VITALS: BP 154/88; PULSE 91; RESP 16; TEMP 98.4; O2SAT 97
[2016-07-25] MEDS: ACETAMINOPHEN 325 MG TAB PO PRN (20:10)
[2016-07-25] MEDS: MIRTAZAPINE 15 MG TAB PO SCH (21:58)
[2016-07-25] MEDS: QUEtiapine FUMARATE 300 MG TAB PO SCH (21:58)
[2016-07-26 05:59] VITALS: BP 99/52; PULSE 80; RESP 16; TEMP 97.7
[2016-07-26] MEDS: REMOVE OLD NICODERM (NICOTINE) PATCH TD SCH (09:00)
[2016-07-26] MEDS: LURASIDONE 80 MG TAB PO SCH (09:26)
[2016-07-26] MEDS: NICOTINE 21 MG/24 HR PATCH T-DERMAL SCH (09:27)
--- NOTE | 2016-07-26 12:21 | HHI.PYPN ---
Subjective Remarks Patient seen, chart reviewed, case discussed with staff Patient reports gradual improvement in mood, but continued poor sleep. Only about 3 hours of sleep last night, and wake ups due to noise in [place]. Also he is easily irritated with the noise and intermittent confusion on the Unit. He is resistant to augmentation with [place], nor does he wish to take Depakote after being given informed consent regarding need for repeated drug levels and followup of liver function. He did consent to the use of trileptal and he is willing to try an increase in quetiapine He is denying side effects to quetiapine and latuda, and he continues to wish to use Remeron Review of Systems Except as stated in HPI: all other systems reviewed are Neg Constitutional: COMPLAINS OF: Fatigue Psychiatric: COMPLAINS OF: Anxiety, Confusion, Mood changes, Depression Objective Alert: Yes [place]: Person, Place (at least) Mood: Calm Affect: Blunted Memory Intact: Comment (intact) Hallucinations: Other (No AVH) Delusions: Yes Delusion Type: Other (no delusions) Suicidal: Ideation (denies SI) Homicidal: Ideation (denies HI) Insight/Judgement poor Vitals/IOs Vital Signs Date Time Temp Pulse Resp B/P Pulse Ox O2 Delivery O2 Flow Rate FiO2 07/26/16 05:59 97.7 80 16 99/52 07/25/16 18:00 97 Assessment & Plan Problem List: (1) Bipolar I disorder, most recent episode depressed Assessment & Plan: Patient reports improvement, but he is still irritable and having trouble with his sleep. Since he is resistant to trying [place] and Depakote I will try Trileptal and he has received informed consent regarding the sun sensitive skin rash. ICD Code: F31.30 Assessment & Plan Estimated LOS: days Justification for Cont. Inpt. medication changes require active monitoring, risk of decompensating. Request HC Surrog/Guard Advoc?: No Milla Barahona MD Jul 26, 2016 12:21
[2016-07-26] MEDS: ACETAMINOPHEN 325 MG TAB PO PRN (12:28)
[2016-07-26] MEDS: MIRTAZAPINE 15 MG TAB PO SCH (20:13)
[2016-07-26] MEDS ORDERED: QUEtiapine FUMARATE 200 MG TAB PO SCH (21:00)
[2016-07-26] MEDS ORDERED: OXcarbazepine 300 MG TAB PO SCH (21:00)
[2016-07-26 21:33] VITALS: BP 153/83; PULSE 77; RESP 18; TEMP 98.4; O2SAT 100
[2016-07-27 06:13] VITALS: BP 108/65; PULSE 73; RESP 16; TEMP 97.9
[2016-07-27] MEDS: LURASIDONE 80 MG TAB PO SCH (08:25)
[2016-07-27] MEDS: REMOVE OLD NICODERM (NICOTINE) PATCH TD SCH (08:25)
[2016-07-27] MEDS: NICOTINE 21 MG/24 HR PATCH T-DERMAL SCH (08:25)
--- NOTE | 2016-07-27 11:23 | HHI.DS ---
Psychiatry Discharge Summary Inpatient Psychiatric care?: Yes Advance Directive: No Reason Not Provided: Due to Patient Condition Mental Health AdvanceDirective: No Health Care Proxy: No Admission Admission Date Jul 18, 2016 at 10:20 Admission Diagnosis: (1) Bipolar I disorder, most recent episode depressed ICD Code: F31.30 GAF Score: 45 Brief History Patient is a 25-year-old white male comes here under [place] act by the [place] [employer] dated 07/17/16 at 2255 hrs. stating Jaxon stated that he wanted to cause harm to himself by using a knife. Jaxon stated he had thoughts of killing himself. Jaxon was in possession of a knife upon my arrival. Jaxon also contacted the suicide hotline prior to my arrival. Patient seen screened in the ED blood alcohol level of 139 urine toxicology negative. Upon review of EMR patient has had 3 visits for mental health issues in 2012 there been various urine toxicology is drawn showing elevated blood alcohol levels and also other substances including marijuana, opiates, and benzodiazepines. At the present time patient sitting quietly in his room on 2600 nurse Tyson present throughout session. Patient initially attempted to control the meeting by demanding he speak with me alone, I informed him that this was a team approach and that the nurses remain present to witness and he were of his statements. Patient showed some marked manipulation irritability narcissistic traits during the session he states that he drinks to treat his depression stated that he had been depressed for many years. He lives at home with his mother father and 14-year-old sister, states he gets along with his mother, does not get along with his father or sister. He is vague somewhat grandiose statements about a multiple year history of multiple drug abuse including K2 mushrooms and hallucinogenic's. Though he denies intravenous drug abuse. He states he has both initial and mid insomnia with a.m. anergy, there is decreased energy, though he denies any crying episodes, he states appetite is up and down, though his anhedonic stating he has no sex drive (he states his sexual preferences female), he finds his attention and concentration is markedly variable, the fundus self isolating night going into any crowded all mall like environment, he does acknowledge self -medicating with alcohol and drugs, he denies any voices or visions with this, he does acknowledge suicidal ideation though he states he would not kill himself causing what he would do to his mother and sister. He denies any physical or sexual abuse. Voices he has at times had a pressure show with his father. He states he has been arrested in the past for aggressive behavior. He does deny any significant mood swings though there to he is somewhat tangential minimizing and confusing with his statements about manic episodes He states he has some college courses and psychology. 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 We did discuss medications. He states he has been on medications in the past this hospitalizations in 2012 being was never compliant with medications and any type of long-term. We will start the patient on Remeron 15 mg at bedtime and Abilify 10 mg in the morning.. At this time patient does meet criteria for acute involuntary psychiatric hospitalization on the [place] act I'll do first opinion requests second opinion. I feel he has capacity to assist with us was medications. Hopeless be fairly short stay and we can make recommendations related to substance abuse and mental health issues. Though he did make somewhat confusing story about making an appointment with a family doctor to discuss possible counseling. He does deny any significant medical surgical problems Tobacco Use In Past 30 Days: 5 or More Cigarettes/Day Alcohol Use: 2-4 Times Per Month Hospital Course Patient was started on supportive treatment. Her his medication was adjusted. He started to feel better. No behavior or management problem reported. Patient denied any suicidal ideation intentions of plan. Patient denied any auditory or visual hallucinations. He was willing to follow-up as an outpatient with [facility] and then find his own psychiatrist. No side effects were complained. He wanted to go home at that point arrangements were made for him to be discharged and follow-up as an outpatient Results Blood Pressure 108 / 65 Vital Signs Date Time Temp Pulse Resp B/P Pulse Ox O2 Delivery O2 Flow Rate FiO2 07/27/16 06:13 97.9 73 16 108/65 07/26/16 21:33 100 Please see EMR Summary of Major Lab Results Nothing significant Summary of Procedures None Imaging None Pending results at discharge: No Medications # of Antipsychotic meds at D/C: 1 Appropriate >1 Antipsych meds?: 2 Approp Antipsych med options 1 - Minimum of three failed multiple trials of monotherapy. Discharge Discharge Date: Jul 27, 2016 Discharge Diagnosis: (1) Bipolar I disorder, most recent episode depressed Diagnosis: Principal ICD Code: F31.30 Mental Status Exam at Disch Patient was alert oriented 3 cooperative casually dressed. His speech was clear spontaneous without any evidence of loose associations. His mood has improved. He denied any suicidal ideation intentions of plan. Denied any auditory or visual hallucinations. No side effects were complained. No paranoia observed. He wants to go home willing to take the medication and follow-up as an outpatient Pt Condition on Discharge: Stable Discharge Disposition: Discharge Home Discharge Instructions Diet Instructions: As Tolerated, No Restrictions Activities you can perform: Regular-No Restrictions Scheduled Appointment: Shun Pedro Discharge Time <= 30 minutes Discharge/Advance Care Plan Health Problems: (1) Bipolar I disorder, most recent episode depressed Goals to promote your health * To prevent worsening of your condition and complications * To maintain your health at the optimal level Directions to meet your goals Take your medications as prescribed Follow your dietary instruction Follow activity as directed Keep your appointments as scheduled Take your immunizations and boosters as scheduled If your symptoms worsen call your PCP, if no PCP go to Urgent Care Center or Emergency Room For 14/02 questions related to your inpatient stay or results of tests pending at discharge, please contact Dr. Chad Puente at Smoking is Dangerous to Your Health. Avoid second hand smoking Chad Puente MD Jul 27, 2016 11:23
[2016-07-27] MEDS ORDERED: OXCA300T PO (11:25)
[2016-07-27] MEDS ORDERED: LURA80 PO (11:25)
[2016-07-27] MEDS ORDERED: MIRTA15 PO (11:25)
[2016-07-27] MEDS ORDERED: QUET1TAB9 PO (11:25)
== END 2016-07-27 14:05 | disposition home or self-care (01) | DRG 885 ==
LOC: NED 23:23 → NEDA 07-18 10:20 → H260 07-18 11:10
PROVIDERS: ADMIT Psychiatry & Neurology Addiction Medicine; ATTEND Psychiatry & Neurology Addiction Medicine
DX: F31.32 Bipolar disorder, current episode depressed, moderate (principal); R45.851 Suicidal ideations; I10 Essential (primary) hypertension; F19.14 Other psychoactive substance abuse with psychoactive substance-induced mood disorder; F17.210 Nicotine dependence, cigarettes, uncomplicated; F10.129 Alcohol abuse with intoxication, unspecified; F60.81 Narcissistic personality disorder; F11.10 Opioid abuse, uncomplicated; F12.10 Cannabis abuse, uncomplicated; F13.10 Sedative, hypnotic or anxiolytic abuse, uncomplicated; G47.00 Insomnia, unspecified; Y90.6 Blood alcohol level of 120-199 mg/100 ml; Z81.8 Family history of other mental and behavioral disorders; Z91.5 Personal history of self-harm
CPT/HCPCS: 80048; 80053; 80061; 80301; 80320; 80329; 83036; 85025; 85048; 99284; G0479